=== PATIENT | female | born 1965 | race Caucasian/White ===

== ENCOUNTER 2018-02-13 13:54 | Outpatient (REF) | payer BC, SELFPAY ==
--- NOTE | 2018-02-13 13:30 | PAPFT_PTH ---
PATIENT: ABELARDO SHAW LOC: [facility] U#:[id number] AGE/SX: 52/F ROOM: RE02/13/[address]: Sandra Moyer NP : 1965 BED: DIS: 02/13/2018 SPEC #: [id number] RECD: 02/13/18 17:43 STATUS: CEZAR JOHNS #: [id number] NAVA: 02/13/18 13:[address]: Sandra Moyer NP DEPT: [facility] Cytology RECD BY: Shayna Avelar ENTERED: 02/13/18 17:44 SP TYPE: PAPFT OTHR DR: Nathalie Suarez MD, DC Tissues: 1 - CX/ENDOCX FOR PAP SMEARS Procedures: PAP THIN PREP/UVM Screening HPV DNA PROBE Comments: [id number] (CHLAMYDIA/GC)
[2018-02-14 16:14] LABS: Chlamydia Result Negative; GC Result Negative; Specimen Description SEE COMMENTS
== END 2018-02-13 14:14 ==
LOC: LBN 13:54
PROVIDERS: PCP Family Medicine; Visit Provider Nurse Practitioner Women's Health
DX: Z12.4 Encounter for screening for malignant neoplasm of cervix (principal); Z11.3 Encounter for screening for infections with a predominantly sexual mode of transmission; Z11.51 Encounter for screening for human papillomavirus (HPV)
CPT/HCPCS: 87491; 87591; 88142; 87624

== ENCOUNTER 2018-03-17 00:37 | Outpatient (CLI) | payer BC, SELFPAY ==
--- NOTE | 2018-03-17 15:00 | DI.MAMMO_ITS ---
SYMPTOM/DIAGNOSIS: SCREENING MAMMOGRAMS: Mammograms were interpreted according to the usual protocol including computer analysis with CAD system, tomosynthesis and C view imaging. Comparison is made with prior examinations. Breast density, C. No suspicious masses or microcalcifications are seen. The obscured nodule in the 9 o'clock position of the left breast appears stable. There has been no significant change compared to the prior examinations. IMPRESSION: No evidence for malignancy. Yearly mammography is recommended. Category 2. MQSA ASSESSMENT OF FINDINGS: Negative with benign findings. Category 2. Patient will receive a letter notifying them of these results. Bi-RADS category C. The breasts are heterogeneously dense, which may obscure small masses.
== END 2018-03-17 00:57 ==
PROVIDERS: PCP Family Medicine; Visit Provider Family Medicine
DX: Z12.31 Encounter for screening mammogram for malignant neoplasm of breast (principal); N60.82 Other benign mammary dysplasias of left breast
CPT/HCPCS: 77063; 77067

== ENCOUNTER 2018-05-19 13:18 | Day surgery (SDC) | payer BC, SELFPAY ==
--- NOTE | 2018-05-19 06:40 | W.COLOREPORT ---
Date of service: 05/19/18 Time of Service: 14:03 Colonoscopy Report Date of procedure: 05/19/18 Pre-op diagnosis general: Colon Cancer screening Post-op diagnosis procedure note: other (colorectal polyps) Procedure: Colonoscopy with polypectomy by cold forceps Surgeon: Margarita Quintero Anesthesia proc note operative: MAC (Charline Ontiveros, SINDI/ ASA 2) Estimated blood loss (mL): 3 Pathology: other (cecal polyps x 2/ rectal polyp x1) Complications: None Disposition: same day Indications: Mrs. Moya is a 52-year-old female who was seen in the office for a screening colonoscopy. This will be her first colonoscopy. Risks, benefits and complications were reviewed with her and she wished to proceed. No guarantees were given or implied. Prep: Miralax/Dulcolax Procedure Start Time: 14:03 Procedure End Time: 14:26 Retraction Time: 10 Findings: One rectal polyp 2 cecal polyps Procedure Description: After informed consent was obtained the patient was taken to the procedure room and placed in a left decubitous position. Monitors were applied and a time out was done. The patients name, date of , procedure, allergies to medications and metal in their body was reviewed. The patient was then sedated. Once sedated and comfortable a rectal exam was done. External exam was normal. Internal exam revealed a normal sphincter tone and no palpable masses. The scope was then introduced and retro-flexed. No internal hemorrhoids were identified. The scope was then advanced to the cecum without difficulty. The TI and appendiceal orifice were identified. The prep was good. The scope was then slowly retracted over 10 minutes back into the rectum. 2 polyps were removed in the cecum with cold forceps and 1 polyp was removed in the rectum. The scope was removed and the patient was woken up and taken back to Same day surgery in stable condition. The patient tolerated the procedure well and there were no immediate complications. Follow up: The patient should follow up in 3-5 years unless they develop changes in bowel habits or other new gastrointestinal complaints.
[2018-05-19 13:29] VITALS: BP 125/95; PULSE 83; RESP 16; TEMP 37.3; O2SAT 97
[2018-05-19] MEDS: Lactated Ringers 1,000 ML 80 ML IV (13:45)
--- NOTE | 2018-05-19 14:04 | BOWEL_PTH ---
PATIENT: ABELARDO SHAW LOC: [facility] U#:[id number] AGE/SX: 52/F ROOM: RE05/19/[address]: Margarita Quintero MD : 1965 BED: DIS: 05/19/2018 SPEC #: [id number] RECD: 05/19/18 18:21 STATUS: CEZAR REQ #: [id number] NAVA: 05/19/18 14:[address]: Margarita Quintero DEPT: Surgical Specimen RECD BY: Shayna Avelar ENTERED: 05/19/18 18:21 SP TYPE: Bowel OTHR DR: Nathalie Suarez MD, DC Tissues: 1 - BIOPSY BOWEL 2 - BIOPSY BOWEL Procedures: GROSS AND MICRO LEVEL 4 Comments: [id number]
--- NOTE | 2018-05-19 14:33 | PDOC.DSDIS_ITS ---
Discharge Plan Discharge Details Attending Provider: Margarita Quintero Primary Care Provider: Nathalie Suarez Home Meds and New Rx's Prescriptions: Continue levonorgestrel [Mirena] 20 mcg/24 hr (5 years) intrauterine device 1 insert IY ONCE RF: 0 varenicline [Chantix Starting Month Box] 0.5 mg (11)- 1 mg (42) tablets,dose pack 1 dose pk PO DAILY Qty: 1 RF: 4 Discontinued bisacodyl [Dulcolax (bisacodyl)] 5 mg tablet,delayed release (DR/EC) 5 mg PO ONCE Qty: 4 RF: 0 polyethylene glycol 3350 17 gram/dose powder 255 g PO ONCE Qty: 255 RF: 0 Discharge Instructions Instructions: Colonoscopy (DC), Colorectal Polyps (DC) Additional Instructions: Findings: 3 polyps Follow up: 3-5 years Please call if you develop: fevers >101.5 Nausea and Vomiting Abdominal pain that is not transient DAY SURGERY UNIT POST COLONOSCOPY INSTRUCTIONS 1. Because there will be medication in your system for the next 24 hours, you may feel a little sleepy. Your coordination will be affected. Therefore: a. Do not drive or operate dangerous equipment for 24 hours. b. Do not drink alcohol beverages for 24 hours (not even beer). c. Plan to go home and rest for the day. 2. Generally there are no restrictions on your activity after a day or so has gone by, but you may feel a bit fatigued for a few days. 3 After you arrive home you may have a light meal and return to a normal diet as you can tolerate it without feeling sick to your stomach. 4. After surgery, you may feel pain or discomfort. This should be only transient , but if it persists please contact your doctor. 5. If there are any questions regarding the findings of your procedure, please feel free to contact your doctor. 6. If you are unable to contact your doctor with a problem, contact the hospital at [phone]. 7. Continue all your regular medications unless directed otherwise. I understand the above instructions and have no questions. Signature of Patient or Responsible Adult Escort Date/Time Name of Responsible Adult Escort Signature of Nurse Date/Time Stand Alone Forms: Colonoscopy Post Instructions, Mira Diallo (DSU) Activity:: Activity as Tolerated Diet:: As Tolerated DS: Diagnosis Discharge Diagnosis (1) Colorectal polyps: Status: Acute (2) S/P colonoscopy: Status: Acute
[2018-05-19 14:55] VITALS: BP 120/89; PULSE 76; RESP 16; TEMP 36.8; O2SAT 97
== END 2018-05-19 15:14 | disposition home or self-care (01) ==
PROVIDERS: PCP Family Medicine; Visit Provider Surgery
PROC: 0DJD8ZZ Inspection of Lower Intestinal Tract, Via Natural or Artificial Opening Endoscopic (ICD-10-PCS; CPT 45378; principal; 2018-05-19 13:30)
DX: Z12.11 Encounter for screening for malignant neoplasm of colon (principal); D12.0 Benign neoplasm of cecum; K62.1 Rectal polyp
CPT/HCPCS: 45380; 81025; 88305; J2405

== ENCOUNTER 2018-12-06 05:51 | Emergency (ER) | payer BC, SELFPAY ==
--- NOTE | 2018-12-06 06:01 | W.ED.GENAD ---
Discharge Plan Disposition Patient Disposition: Discharge Details Chief Complaint: CodeBlue Clinical Impression: DOA ( on arrival) Primary Care Provider: Nathalie Suarez ED Provider: Jaiden Monsalve Medical Decision Making Patient arrives unresponsive with CPR in progress. She has received epinephrine, amiodarone, multiple shocks. Transport time around 30 minutes. CPR held on arrival here. There was some wide-complex electrical activity noted for a short 15 to 30 seconds. There was no pulse with this. She quickly became asystolic and was pronounced at 5:49 AM. According to the boyfriend she had complained of headaches on and off. She complained of a headache on . She was fine yesterday and went to work. She was a smoker and had a couple of drinks a day. No report of recent trauma. No report of depression or suicidal thoughts. Case discussed with medical reviewer office. Patient has been accepted by the [facility] for autopsy and investigation. Medical Records Medical records reviewed: Yes I reviewed the patient's medical records. HPI General Mode of arrival: EMS. Date/Time Provider Initiated Documentation: 12/06/18 06:01. Limitations to Documentation: other. Information obtained by: family and EMS. HPI Narrative: Patient arrives to ED with CPR in progress. Per EMS report they were called to the residence after patient was found by her significant other on the floor in the kitchen with seizure-like activity. EMS reports that she was unresponsive with agonal respirations. She did have a pulse. She shortly went into cardiac arrest once loaded into the ambulance. She had an IO and a Enio tube placed. She received epinephrine, multiple shocks, amiodarone. At one point they did have a return of pulse but she decompensated into PEA and V. fib. CPR was continued following ACLS protocol during transport in. Transport time is approximately 30 minutes from residents to hospital. Related Data Home Medications Medication Instructions Recorded Confirmed levonorgestrel 20 mcg/24 hours (5 1 insert IY ONCE 02/13/18 05/19/18 yrs) 52 mg intrauterine device varenicline 0.5 mg (11)-1 mg (42) 1 dose pk PO DAILY #1 dose pk 08/18/18 tablets in a dose pack Previous Rx's Medication Instructions Recorded varenicline 0.5 mg (11)-1 mg (42) 1 dose pk PO DAILY #1 dose pk 08/18/18 tablets in a dose pack Allergies Allergy/AdvReac Type Severity Reaction Status Date / Time No Known Allergies Allergy Unverified 12/06/18 06:01 General Stated Complaint: CodeBlue OSCAR: 1 Review of Systems Review of Systems Unobtainable due to [facility] Medical History Colorectal polyps (Acute ~05/19/18) De Quervain's tenosynovitis, right (Chronic 09/09/17) Carpal tunnel syndrome of right wrist (Chronic 09/09/17) Perimenopause (Chronic) Annual physical exam (Resolved 12/21/14) Depressive disorder (Resolved) History of tobacco use (Resolved) IUD (intrauterine device) in place (Resolved) Other abnormal Papanicolaou smear of cervix and cervical HPV (Resolved 12/12/12) Pneumonia, organism unspecified (Resolved) Spon w/ pel inf-unsp (Resolved) Contraception Surgical History S/P colonoscopy (Acute ~05/19/18) History of conization of cervix (Resolved) Cervical Conization/LEEP Dilation and curettage Family History Mother Diabetes Alzheimer's disease Father Dulce Gehrig disease Stroke Brother Essential hypertension Hyperlipidemia Grandfather Diabetes Grandfather Heart disease Grandmother No problems noted. Grandmother Alzheimer's disease Sister Hyperlipidemia Sister No problems noted. Brother Essential hypertension Hyperlipidemia Son No problems noted. Daughter Depression Social History Smoking/Tobacco Use Status: Former Tobacco Use Alcohol Intake: current Alcohol Intake frequency: a few times a week Drug use: Never Substance use type: does not use Household members: other Details: 2 current occupation: BOOKEEPING Pets and animals: No Duration: 15-30 minutes/day Frequency: 5-6 times per week Special yue needs: No Female Reproductive History Menstrual control method: vaginal ring History History 5 Para Hx # Term Pregnancies 2 Multiple births Hx # Pregnancies Ectopic pregnancies AB induced Hx Number of Living Children AB spontaneous Exam Narrative Exam Narrative: Const: WDWN female arrives unresponsive with Enio tube in place. HEENT: NC/AT. Normal facial exam. Eyes: Pupils are fixed and dialated. Neck: Trachea midline. Lungs: No spontaneous respirations. Cor: No heartbeat or pulses present. Neuro: Unresponsive. Fixed pupils. Ext: No edema. No deformity. Course Oxygen Delivery Method Ambu-Bag 12/06/18 05:57
--- NOTE | 2018-12-06 06:04 | ED.GENADUL_ITS ---
Discharge Plan Disposition Patient Disposition: Discharge Details Chief Complaint: CodeBlue Clinical Impression: DOA ( on arrival) Primary Care Provider: Nathalie Suarez ED Provider: Jaiden Monsalve Medical Decision Making Patient arrives unresponsive with CPR in progress. She has received epinephrine, amiodarone, multiple shocks. Transport time around 30 minutes. CPR held on arrival here. There was some wide-complex electrical activity noted for a short 15 to 30 seconds. There was no pulse with this. She quickly became asystolic and was pronounced at 5:49 AM. According to the boyfriend she had complained of headaches on and off. She complained of a headache on . She was fine yesterday and went to work. She was a smoker and had a couple of drinks a day. No report of recent trauma. No report of depression or suicidal thoughts. Case discussed with biomedical equipment specialist office. Patient has been accepted by the [place] for autopsy and investigation. Medical Records Medical records reviewed: Yes I reviewed the patient's medical records. HPI General Mode of arrival: EMS . Date/Time Provider Initiated Documentation: 12/06/18 06:01 . Limitations to Documentation: other . Information obtained by: family and EMS . HPI Narrative: Patient arrives to ED with CPR in progress. Per EMS report they were called to the residence after patient was found by her significant other on the floor in the kitchen with seizure-like activity. EMS reports that she was unresponsive with agonal respirations. She did have a pulse. She shortly went into cardiac arrest once loaded into the ambulance. She had an IO and a Enio tube placed. She received epinephrine, multiple shocks, amiodarone. At one point they did have a return of pulse but she decompensated into PEA and V. fib. CPR was continued following ACLS protocol during transport in. Transport time is approximately 30 minutes from residents to hospital. Related Data Home Medications Medication Instructions Recorded Confirmed levonorgestrel 20 mcg/24 hours (5 1 insert IY ONCE 02/13/18 05/19/18 yrs) 52 mg intrauterine device varenicline 0.5 mg (11)-1 mg (42) 1 dose pk PO DAILY #1 dose pk 08/18/18 tablets in a dose pack Previous Rx's Medication Instructions Recorded varenicline 0.5 mg (11)-1 mg (42) 1 dose pk PO DAILY #1 dose pk 08/18/18 tablets in a dose pack Allergies Allergy/AdvReac Type Severity Reaction Status Date / Time No Known Allergies Allergy Unverified 12/06/18 06:01 General Stated Complaint: CodeBlue OSCAR: 1 Review of Systems Review of Systems Unobtainable due to [facility] Medical History Colorectal polyps (Acute ~05/19/18) De Quervain's tenosynovitis, right (Chronic 09/09/17) Carpal tunnel syndrome of right wrist (Chronic 09/09/17) Perimenopause (Chronic) Annual physical exam (Resolved 12/21/14) Depressive disorder (Resolved) History of tobacco use (Resolved) IUD (intrauterine device) in place (Resolved) Other abnormal Papanicolaou smear of cervix and cervical HPV (Resolved 12/12/12) Pneumonia, organism unspecified (Resolved) Spon w/ pel inf-unsp (Resolved) Contraception Surgical History S/P colonoscopy (Acute ~05/19/18) History of conization of cervix (Resolved) Cervical Conization/LEEP Dilation and curettage Family History Mother Diabetes Alzheimer's disease Father Dulce Gehrig disease Stroke Brother Essential hypertension Hyperlipidemia Grandfather Diabetes Grandfather Heart disease Grandmother No problems noted. Grandmother Alzheimer's disease Sister Hyperlipidemia Sister No problems noted. Brother Essential hypertension Hyperlipidemia Son No problems noted. Daughter Depression Social History Smoking/Tobacco Use Status: Former Tobacco Use Alcohol Intake: current Alcohol Intake frequency: a few times a week Drug use: Never Substance use type: does not use Household members: other Details: 2 current occupation: BOOKEEPING Pets and animals: No Duration: 15-30 minutes/day Frequency: 5-6 times per week Special yue needs: No Female Reproductive History Menstrual control method: vaginal ring History History 5 Para Hx # Term Pregnancies 2 Multiple births Hx # Pregnancies Ectopic pregnancies AB induced Hx Number of Living Children AB spontaneous Exam Narrative Exam Narrative: Const: WDWN female arrives unresponsive with Enio tube in place. HEENT: NC/AT. Normal facial exam. Eyes: Pupils are fixed and dialated. Neck: Trachea midline. Lungs: No spontaneous respirations. Cor: No heartbeat or pulses present. Neuro: Unresponsive. Fixed pupils. Ext: No edema. No deformity. Course Oxygen Delivery Method Ambu-Bag 12/06/18 05:57
--- NOTE | 2018-12-06 06:37 | NUR.NOTE ---
Nursing Note: [facility] notified of , spoke with Michelle, case # [id number].
--- NOTE | 2018-12-06 07:08 | NUR.NOTE ---
Nursing Note: [id number] [employer] notified of [place] case status spoke with Chauncey/Ricardo
== END 2018-12-06 07:58 | disposition expired ==
PROVIDERS: Emergency Provider Emergency Medicine; PCP Family Medicine
DX: I46.9 Cardiac arrest, cause unspecified (principal); F17.210 Nicotine dependence, cigarettes, uncomplicated
CPT/HCPCS: 99283; 99281